=== PATIENT | female | born 1940 | race Caucasian/White ===

== ENCOUNTER 2018-02-24 21:53 | Observation (INO) ==
[2018-02-25] MEDS ORDERED: *HR* HYDROcodone/Acet 5/325 mg TABLET PO PRN (00:40)
[2018-02-25] MEDS ORDERED: 0.9 % Sodium Chloride 1,000 ML IVC SCH (02:30)
[2018-02-25] MEDS: *HR* FentaNYL (PF) 100 MCG/2 ML VIAL IVP PRN ×2 (04:27→07:36)
[2018-02-25] MEDS ORDERED: Loratadine/Pseudophed (12 HR) 1 EACH TABLET PO ONE (04:50)
--- NOTE | 2018-02-25 07:48 | Internal Med History&Physical ---
<Kevin Jaime - Last Filed: 02/25/18 17:26> Date of Encounter: 02/25/18 Time of Encounter: 07:47 Internal Medicine - H&P: HPI Chief complaint: fall Admitted From: Hospital to Hospital Transfer Plans for Post Hospital Care: Transfer Inp Rehab Fac History of present illness: Ms. Fonseca is a 77 year old female with a past medical history of hypertension, thyroid disease, multiple orthopedic fractures who presents to [facility] from [facility] after sustaining a fall. Patient states that approximately 5 AM on 02/24 she awoke to use the restroom. She reports that her power was out and she was unable to find her walker. She states that she slipped off the edge of the bed and landed on her left hip when she began to experience sudden onset pain. She has fractured that hip in the past most recently in December 2017 status post arthroplasty. She states that she did try to bear the pain using old narcotics that she was prescribed at her last hip fracture however states that the pain did increase and she presented to [facility]. At [facility], x-rays were obtained of the left hip and showed a left hip fracture located in the pubic Ramus. Orthopedics was consulted and she was transferred to [facility] for anticipation for orthopedic care. Upon examination this morning, patient states that she is still having a considerable amount of pain radiating an 8/10 in intensity and nonradiating. She does have range of motion and denies any symptoms of numbness, tingling. She states she normally moves around with the help of a walker since December as she has been falling frequently. She also stated that this was a mechanical fall and denies any symptoms of dizziness, lightheadedness, chest pain, shortness of breath. She has had cardiac workup in the past however it has been greater than 15 years since her last left heart catheterization which she reports as normal. She does not experience chest pain on exertion at home although admits that she is not very active. She is not having any shortness of breath although at this time she is having chest pain which she believes is secondary to a "popped rib " after upper respiratory symptoms and congestion. Past Med Surg Social Fam HX - Past Medical History Medical history: arthritis, GERD, hyperlipidemia, thyroid disease Psychiatric history: no psych history - Past Surgical History Surgical History: appendectomy, cholecystectomy, hysterectomy, orthopedic, other , thyroidectomy Additional surgical history: rotator cuff, elbow X3, kidney hammock, - Social History Smoking Status: Never smoker Smokeless Tobacco Status: No Alcohol use: none Drug use: none - Family History Father Name: monisha hoyos Living Status: Cause of : liver failure, alcoholizm Hx Family Neurologic Disorders: Yes (santiago) Internal Medicine - H&P: Meds Albuterol Sulfate [Proair Hfa] 1 puff IH DAILY PRN 12/17/17 [History] Aspirin Enteric Coated [Aspirin EC] 81 mg PO DAILY 12/17/17 [History] Escitalopram [Lexapro] 10 mg PO DAILY 12/17/17 [History] Levothyroxine [Synthroid] 75 mcg PO 0630 12/17/17 [History] Oxycodone HCl/Acetaminophen [Percocet 7.5-325 mg Tablet] 1 each PO Q6HR PRN [History] Gabapentin [Neurontin] 300 mg PO BID 02/24/18 [History] Esomeprazole Magnesium [Nexium] 40 mg PO DAILY 02/25/18 [History] Lisinopril [Zestril] 20 mg PO DAILY 02/25/18 [History] 3 Allergy/AdvReac Type Severity Reaction Status Date / Time Penicillins [PCN] AdvReac Rash Verified 12/17/17 01:51 Sulfa (Sulfonamide AdvReac Rash Verified 12/17/17 01:51 Antibiotics) All Systems PM: A 10-system review of systems was performed and is negative for pertinent findings except as documented above in the HPI. Review of systems: - Constitutional: Denies fevers, chills, weight loss, generalized fatigue - EENT: Admits to nasal congestion, sneezing Denies vision changes/blurriness, rhinorrhea, sore throat, odynaphagia - CVS: Denies chest pain, palpitations, DICKEY, orthopnea, edema, PND - Pulm: Denies SOB, cough, sputum, hematemesis, wheezing - GI: Denies abdominal pain, anorexia, nausea, vomiting, diarrhea, constipation , melena - MSK: Admits to left hip pain, limited ROM secondary to pain. - Skin: Denies rashes, ulcers, color changes - Neuro: Denies DEAL, paresthesias, focal deficits, ataxia, - Constitutional Vitals: Temp Pulse Resp BP Pulse Ox 97.4 F L 70 16 156/81 98 02/25/18 07:23 02/25/18 07:23 02/25/18 07:23 02/25/18 07:23 02/25/18 07:23 Exam: Gen.: Vitals noted. No acute distress. AAOx3 HEENT: PERRL/EOMI, oropharynx clear, Normocephalic, atraumatic, MMM Cardiac: RRR, no murmur, +S1/S2, reproducible chest pain on palpation Pulmonary: CTA bilaterally, no wheezes, rales or rhonchi, equal chest expansion Abdomen: soft, nontender, BS noted, no guarding, no rebound. MSK: Pain in left hip, distal pulses intact, sensation grossly within normal limits, range of motion limited by pain Extremities: no BLE edema, nontender calf, no cyanosis or clubbing Neuro: A&Ox3, no focal deficits Psych: Appropriate mood and behavior - Assessment and plan (1) Hip fracture Current Visit: Yes Status: Acute Assessment and plan: - Secondary to mechanical fall, fracture of the left pubic ramus - Ortho has been consulted, appreciate recommendations - Pain control with [place], [place] Oxycodone - Patient has uncertain cardiac risk however given high morbidity and mortality of hip fracture, benefits likely outweigh the risks of proceeding with surgical repair. - Will likely benefit from PT/OT after surgery as well as rehab facility. Plan - Await recommendations from orthopedics - Symptomatic control Qualifiers: Encounter type: initial encounter Fracture type: closed Laterality: left Qualified Code(s): S72.002A - Fracture of unspecified part of neck of left femur, initial encounter for closed fracture (2) Fall Current Visit: Yes Status: Acute Assessment and plan: - Patient states that is mechanical in nature - Most recent cardiac workup greater than 15 years ago however patient reports normal - No reports of chest pain but admits to not exerting herself frequently - No EKG on admission paperwork, will obtain and review. No signs of ischemia. Qualifiers: Encounter type: initial encounter Qualified Code(s): W19.XXXA - Unspecified fall, initial encounter (3) Thyroid disease Current Visit: Yes Status: Chronic Assessment and plan: Continue home Synthroid (4) Weakness Current Visit: Yes Status: Chronic Assessment and plan: - May benefit from rehab and PT/OT on discharge (5) Hyperlipidemia Current Visit: Yes Status: Chronic Assessment and plan: - Not on home statin Qualifiers: Hyperlipidemia type: unspecified Qualified Code(s): E78.5 - Hyperlipidemia , unspecified (6) DVT prophylaxis Current Visit: Yes Status: Acute Assessment and plan: - Immobile from hip fracture - Will not place on AC at this time until orthopedic recommendations are made (7) Hypertension Current Visit: Yes Status: Chronic Assessment and plan: - Continue home medications - Mildly elevated on presentation likely secondary to pain - Continue to monitor Qualifiers: Hypertension type: essential hypertension Qualified Code(s): I10 - Essential (primary) hypertension - Time Spent With Patient Total time spent is greater than 50% in coordination of care (as documented) at patient's floor/unit and/or counseling patient: <Helder Meek - Last Filed: 02/25/18 17:59> Date of Encounter: 02/25/18 Internal Medicine - H&P: HPI History of present illness: Ms. Fonseca is a 77 year old female All Systems PM: A 10-system review of systems was performed and is negative for pertinent findings except as documented above in the HPI. - Constitutional Vitals: Temp Pulse Resp BP Pulse Ox 98.6 F 87 17 155/82 97 02/25/18 15:16 02/25/18 15:16 02/25/18 15:16 02/25/18 15:16 02/25/18 15:16 - Assessment and plan (1) Fall Current Visit: Yes Status: Acute Qualifiers: Encounter type: initial encounter Qualified Code(s): W19.XXXA - Unspecified fall, initial encounter (2) Weakness Current Visit: Yes Status: Chronic (3) Hyperlipidemia Current Visit: Yes Status: Chronic Qualifiers: Hyperlipidemia type: unspecified Qualified Code(s): E78.5 - Hyperlipidemia , unspecified (4) DVT prophylaxis Current Visit: Yes Status: Acute (5) Hip fracture Current Visit: Yes Status: Acute Qualifiers: Encounter type: initial encounter Fracture type: closed Laterality: left Qualified Code(s): S72.002A - Fracture of unspecified part of neck of left femur, initial encounter for closed fracture (6) Thyroid disease Current Visit: Yes Status: Chronic (7) Hypertension Current Visit: Yes Status: Chronic Qualifiers: Hypertension type: essential hypertension Qualified Code(s): I10 - Essential (primary) hypertension - Time Spent With Patient Total time spent is greater than 50% in coordination of care (as documented) at patient's floor/unit and/or counseling patient: - Attending Attestation I have seen and examined this pt independently. I have discussed with resident physician Dr. Jaime regarding the management plan. Agree with the documentation.
[2018-02-25] MEDS ORDERED: Naloxone 0.4 MG/ML INJ IVP PRN (08:37)
[2018-02-25] MEDS: Lisinopril 20 MG TABLET PO SCH (11:44)
[2018-02-25] MEDS: Gabapentin 300 MG CAPSULE PO SCH ×2 (11:44→21:35)
[2018-02-25] MEDS: OXYCODONE Oral CONC 10 MG/0.5 ML ORAL.SYG SL PRN ×3 (11:49→21:35)
--- NOTE | 2018-02-25 19:40 | Orthopedic Consult Note ---
Date of Encounter: 02/25/18 Time of Encounter: 19:34 History of Present Illness Chief complaint: Left hip pain HPI: Ms. Fonseca is a 77 year old female sustained an injury to her left hip when she states that she slipped off the edge of her bed and landed on her left hip. This is same hip that she sustained a fracture of about 9 or 10 weeks ago and required fixation. 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 Unfortunately, the patient did not realize that the luna off and it was dark. Upon returning to bed she slid off the edge and landed on the hip. She had acute onset of pain and was unable to ambulate. She waited several hours and then ultimately presented to [facility] where x-rays taken revealed evidence of a left pelvic fracture. She was transferred to [facility] for further evaluation and management. I reviewed the patient's completed history and physical form on the medical record as well as reviewed her medical chart. Pertinent orthopedic examination reveals limited ability to examine the left hip due to pain elicited with attempts at range of motion. No evidence of significant shortening nor rotatory disturbances. Distal neurovascular exam is intact. I reviewed x-rays from 12/30/17, these reveal a trochanteric nail in the left hip with appropriate positioning and no complicating features. I reviewed the x-rays taken at [facility], dated 02/24/2018, these reveal evidence of a superior pubic ramus fracture close to the level of the acetabulum. There are some anomalies at the symphysis pubis with a suspected inferior pubic ramus fracture at this level. The previously placed trochanteric nail was fracture to be stable and in essence well-healed. Impression: Left inferior superior pubic rami fractures, nondisplaced Recommendation: These do not require surgical intervention. I discussed with the patient and family that these are treated conservatively with use of a walker and beginning weightbearing as tolerated utilizing standard walker. We also discussed pain management, the patient is on chronic pain medications on a discussed with her that we will have to proceed with caution in regards to any escalation of her medications. I also discussed that we are talking pain management, not pain free. Also need to be concerned with constipation or obstipation in light of the pelvic type pain as well as her relative immobility and the use of narcotic medications. Suspect the patient will need short-term rehabilitation stay, she is familiar with this due to recent admission after her hip fracture. Thank you very much for allowing me to seen care for Mrs. Kowalski. Sincerely, Phoenix Abreu,DO Past Med Surg Social Fam HX - Past Medical History Medical history: arthritis, GERD, hyperlipidemia, thyroid disease Psychiatric history: no psych history - Past Surgical History Surgical History: appendectomy, cholecystectomy, hysterectomy, orthopedic, other , thyroidectomy Additional surgical history: rotator cuff, elbow X3, kidney hammock, - Social History Smoking Status: Never smoker Smokeless Tobacco Status: No Alcohol use: none Drug use: none - Family History Father Name: monisha hoyos Living Status: Cause of : liver failure, alcoholizm Hx Family Neurologic Disorders: Yes (santiago) Medications and Allergies Albuterol Sulfate [Proair Hfa] 1 puff IH DAILY PRN 12/17/17 [History] Aspirin Enteric Coated [Aspirin EC] 81 mg PO DAILY 12/17/17 [History] Escitalopram [Lexapro] 10 mg PO DAILY 12/17/17 [History] Levothyroxine [Synthroid] 75 mcg PO 0630 12/17/17 [History] Oxycodone HCl/Acetaminophen [Percocet 7.5-325 mg Tablet] 1 each PO Q6HR PRN [History] Gabapentin [Neurontin] 300 mg PO BID 02/24/18 [History] Esomeprazole Magnesium [Nexium] 40 mg PO DAILY 02/25/18 [History] Lisinopril [Zestril] 20 mg PO DAILY 02/25/18 [History] 3 Allergy/AdvReac Type Severity Reaction Status Date / Time Penicillins [PCN] AdvReac Rash Verified 12/17/17 01:51 Sulfa (Sulfonamide AdvReac Rash Verified 12/17/17 01:51 Antibiotics) All Systems Reviewed: The remainder of the systems were reviewed and are negative Physical Exam - Constitutional Vitals: Temp Pulse Resp BP Pulse Ox 98.6 F 87 17 155/82 97 02/25/18 15:16 02/25/18 15:16 02/25/18 15:16 02/25/18 15:16 02/25/18 15:16 Results - Labs Labs: All other labs normal. - Diagnostic results Hip x-ray: image reviewed Consult Discharge Plan - Plan Referrals: Michele Maza MD [Primary Care Provider] -
[2018-02-26 02:19] LABS: Hematocrit 37.4 % (35.3-44.9); Hemoglobin 12.3 g/dL (11.5-15.4); Mean Corpuscular HGB Conc 32.9 g/dL (31.6-35.5); Mean Corpuscular Hemoglobin 31.4 pg (28.0-33.3); Mean Corpuscular Volume 95.4 fL (83.0-100.0); Mean Platelet Volume 9.8 fL (9.4-12.4); Platelet Count 228 K/mcL (140-400); Red Blood Count 3.92 M/mcL (3.82-4.97); Red Cell Distribution Width 14.2 % (11.5-14.5)
[2018-02-26 02:39] LABS: BUN/Creatinine Ratio 15 (6-26); Blood Urea Nitrogen 13 mg/dL (8-23); Calcium 8.9 mg/dL (8.6-10.3); Carbon Dioxide 27 mEq/L (23-29); Chloride 99 mEq/L (98-107); Glucose 92 mg/dL (70-105); Osmolality,Calculated 276 (280-300); Potassium 3.7 mEq/L (3.5-5.1); Sodium 133 mEq/L (136-145); eGFR For Non-African Americans > 60 (> 60)
[2018-02-26] MEDS: OXYCODONE Oral CONC 10 MG/0.5 ML ORAL.SYG SL PRN ×2 (05:36→12:24)
[2018-02-26] MEDS ORDERED: Acetaminophen 325 MG TABLET PO PRN (07:38)
[2018-02-26] MEDS: *HR* Enoxaparin 30 MG/0.3 ML SYRINGE SQ SCH ×2 (09:30→20:47)
[2018-02-26] MEDS: Gabapentin 300 MG CAPSULE PO SCH ×2 (09:30→20:47)
[2018-02-26] MEDS: Lisinopril 20 MG TABLET PO SCH (09:30)
[2018-02-26] MEDS ORDERED: Lactulose Oral Soln 20 GM/30 ML UDC PO ONE (11:47)
--- NOTE | 2018-02-26 16:58 | Internal Med Progress Note ---
Hospitalist Progress Note - Encounter Date of Encounter: 02/26/18 Time of Encounter: 09:00 - Subjective Interval History: Pt still c/o pevis/hip pain. Need pain meds. On PT/OT. No fever, nausea/SOB. - Exam Vitals: Temp Pulse Resp BP Pulse Ox 98.2 F 76 18 138/83 97 02/26/18 10:02 02/26/18 10:02 02/26/18 10:02 02/26/18 10:02 02/26/18 10:02 Exam: Gen.: Vitals noted. No acute distress. AAOx3 HEENT: PERRL/EOMI, oropharynx clear, Normocephalic, atraumatic, MMM Cardiac: RRR, no murmur, +S1/S2, reproducible chest pain on palpation Pulmonary: CTA bilaterally, no wheezes, rales or rhonchi, equal chest expansion Abdomen: soft, nontender, BS noted, no guarding, no rebound. MSK: Pain in left hip, distal pulses intact, sensation grossly within normal limits, range of motion limited by pain Extremities: no BLE edema, nontender calf, no cyanosis or clubbing, limited ROM of b/l legs due to pain. Neuro: A&Ox3, no focal deficits Psych: Appropriate mood and behavior - Assessment and Plan (1) Fall Current Visit: Yes Status: Acute Assessment and Plan: - Patient states that is mechanical in nature - Most recent cardiac workup greater than 15 years ago however patient reports normal - No reports of chest pain but admits to not exerting herself frequently - No EKG on admission paperwork, will obtain and review. No signs of ischemia. - PT/OT evaluation (2) Weakness Current Visit: Yes Status: Chronic Assessment and Plan: - May benefit from rehab and PT/OT on discharge (3) Hyperlipidemia Current Visit: Yes Status: Chronic Assessment and Plan: - Not on home statin (4) DVT prophylaxis Current Visit: Yes Status: Acute Assessment and Plan: Lovenox sc 30mg bid (5) Hip fracture Current Visit: Yes Status: Acute Assessment and Plan: - Secondary to mechanical fall, fracture of the left pubic ramus - Ortho has been consulted, appreciate recommendations - no surgical intervention - Cont PT/OT, pain management, and DVT prophylaxis (6) Thyroid disease Current Visit: Yes Status: Chronic Assessment and Plan: Continue home Synthroid (7) Hypertension Current Visit: Yes Status: Chronic Assessment and Plan: - Continue home medications - Mildly elevated on presentation likely secondary to pain - Continue to monitor DVT Prophylaxis: Lovenox SC - Time Spent with Patient Total time spent is greater than 50% in coordination of care (as documented) at patient's floor/unit and/or counseling patient: 30 min 25 - 35 minutes Plan of Care Discussed with: patient Internal Medicine: Result - Labs CBC & Chem 7: 02/26/18 01:35 02/26/18 01:35 Labs: Short CBC 02/26/18 Range/Units 01:35 WBC 9.7 (4.3-11.1) K/mcL Hgb 12.3 (11.5-15.4) g/dL Hct 37.4 (35.3-44.9) % Plt Count 228 (140-400) K/mcL BMP 02/26/18 01:35 Sodium 133 L Potassium 3.7 Chloride 99 Carbon Dioxide 27 BUN 13 Creatinine 0.84 Glucose 92 Calcium 8.9 Consult Discharge Plan - Plan Referrals: Michele Maza MD [Primary Care Provider] - (1) Fall Qualifiers: Encounter type: initial encounter Qualified Code(s): W19.XXXA - Unspecified fall, initial encounter (3) Hyperlipidemia Qualifiers: Hyperlipidemia type: unspecified Qualified Code(s): E78.5 - Hyperlipidemia, unspecified (5) Hip fracture Qualifiers: Encounter type: initial encounter Fracture type: closed Laterality: left Qualified Code(s): S72.002A - Fracture of unspecified part of neck of left femur , initial encounter for closed fracture (7) Hypertension Qualifiers: Hypertension type: essential hypertension Qualified Code(s): I10 - Essential (primary) hypertension
[2018-02-26] MEDS: *HR* HYDROcodone/Acet 7.5/325 mg TABLET PO PRN (20:47)
[2018-02-26] MEDS ORDERED: tiZANidine 4 MG TABLET PO PRN (22:30)
[2018-02-27] MEDS: *HR* Enoxaparin 30 MG/0.3 ML SYRINGE SQ SCH (05:32)
[2018-02-27] MEDS: OXYCODONE Oral CONC 10 MG/0.5 ML ORAL.SYG SL PRN ×2 (05:33→12:38)
--- NOTE | 2018-02-27 08:56 | Internal Med Progress Note ---
<Negro Quispe - Last Filed: 02/27/18 12:53> Hospitalist Progress Note - Encounter Date of Encounter: 02/27/18 Time of Encounter: 08:52 - Subjective Interval History: Pt seen and examined this morning. Resting comfortably, NAD. Pt happy with progress being made. Motivated to continue moving, and looking forward to SNF to receive further tx. Pain 5/10 this morning. Good diet. Last BM Saturday. ROS: denies headaches, changes in vision or hearing, sob, abdominal pain, n/v/d; admits to continued upper left sided chest pain, left thigh and pelvic pain - Exam Vitals: Temp Pulse Resp BP Pulse Ox 98.3 F 64 14 115/63 95 02/27/18 06:43 02/27/18 06:43 02/27/18 06:43 02/27/18 06:43 02/27/18 06:43 Exam: Gen.: No acute distress. AAOx3 HEENT: PERRL/EOMI, Normocephalic, atraumatic, Cardiac: RRR, no murmur, +S1/S2, reproducible chest pain on palpation Pulmonary: CTA bilaterally, no wheezes, rales or rhonchi Abdomen: soft, nontender, no guarding, no rebound. MSK: Pain in left hip, distal pulses intact, sensation grossly within normal limits, range of motion limited by pain Extremities: no BLE edema, nontender calf, no cyanosis or clubbing, limited ROM of b/l legs due to pain. Neuro: A&Ox3, no focal deficits Psych: Appropriate mood and behavior - Assessment and Plan (1) Fall Current Visit: Yes Status: Acute Assessment and Plan: fall mechanical in nature no reports of syncopal or presyncopal episode related to fall cardiac workup 15 years ago reported as normal (2) Hip fracture Current Visit: Yes Status: Acute Assessment and Plan: Left inferior superior pubic rami fractures, nondisplaced Othro consulted rec: -no need for surgical intervention at this time -treated conservatively with use of a walker and beginning weightbearing as tolerated -Short rehab facility stay -pain control -PT/OT (3) Thyroid disease Current Visit: Yes Status: Chronic Assessment and Plan: continue home synthroid (4) DVT prophylaxis Current Visit: Yes Status: Acute Assessment and Plan: Lovenox sc 30mg bid (5) Hyperlipidemia Current Visit: Yes Status: Chronic Assessment and Plan: not on home statin (6) Hypertension Current Visit: Yes Status: Chronic Assessment and Plan: continue home medication controlled 115/63 this morning - Time Spent with Patient Total time spent is greater than 50% in coordination of care (as documented) at patient's floor/unit and/or counseling patient: Internal Medicine: Result - Labs CBC & Chem 7: 02/26/18 01:35 02/26/18 01:35 - VTE Documentation of Mechanical Device: Intermittent pneumatic compression device Consult Discharge Plan - Plan Referrals: Michele Maza MD [Primary Care Provider] - Prescriptions: Oxycodone HCl/Acetaminophen [Percocet 7.5-325 mg Tablet] 1 each PO Q6HR PRN 3 Days #12 tablet PRN Reason: Pain Docusate [Colace] 200 mg PO DAILY #5 capsule <Helder Meek - Last Filed: 02/27/18 13:17> Hospitalist Progress Note - Encounter Date of Encounter: 02/27/18 - Exam Vitals: Temp Pulse Resp BP Pulse Ox 98.1 F 75 14 113/65 96 02/27/18 11:15 02/27/18 11:15 02/27/18 11:15 02/27/18 11:15 02/27/18 11:15 - Assessment and Plan (1) Fall Current Visit: Yes Status: Acute (2) Weakness Current Visit: Yes Status: Chronic (3) Hyperlipidemia Current Visit: Yes Status: Chronic (4) DVT prophylaxis Current Visit: Yes Status: Acute (5) Hip fracture Current Visit: Yes Status: Acute (6) Thyroid disease Current Visit: Yes Status: Chronic (7) Hypertension Current Visit: Yes Status: Chronic - Time Spent with Patient Total time spent is greater than 50% in coordination of care (as documented) at patient's floor/unit and/or counseling patient: Internal Medicine: Result - Labs CBC & Chem 7: 02/26/18 01:35 02/26/18 01:35 - Attending Attestation I have seen and examined this pt independently. I have discussed with resident physician Dr Jaime and medical student regarding the management plan. Agree with the documentation. <MaheshsarahNegro - Last Filed: 02/27/18 12:53> (1) Fall Qualifiers: Encounter type: initial encounter Qualified Code(s): W19.XXXA - Unspecified fall, initial encounter (2) Hip fracture Qualifiers: Encounter type: initial encounter Fracture type: closed Laterality: left Qualified Code(s): S72.002A - Fracture of unspecified part of neck of left femur , initial encounter for closed fracture (5) Hyperlipidemia Qualifiers: Hyperlipidemia type: unspecified Qualified Code(s): E78.5 - Hyperlipidemia, unspecified (6) Hypertension Qualifiers: Hypertension type: essential hypertension Qualified Code(s): I10 - Essential (primary) hypertension <Helder Meek - Last Filed: 02/27/18 13:17> (1) Fall Qualifiers: Qualified Code(s): W19.XXXA - Unspecified fall, initial encounter (3) Hyperlipidemia Qualifiers: Qualified Code(s): E78.5 - Hyperlipidemia, unspecified (5) Hip fracture Qualifiers: Qualified Code(s): S72.002A - Fracture of unspecified part of neck of left femur, initial encounter for closed fracture (7) Hypertension Qualifiers: Qualified Code(s): I10 - Essential (primary) hypertension
[2018-02-27] MEDS: *HR* HYDROcodone/Acet 7.5/325 mg TABLET PO PRN (09:03)
[2018-02-27] MEDS: Gabapentin 300 MG CAPSULE PO SCH (09:03)
[2018-02-27] MEDS: Lisinopril 20 MG TABLET PO SCH (09:04)
[2018-02-27 12:53] VITALS: BP 113/65
--- NOTE | 2018-02-27 13:15 | Discharge Summary ---
<AnthonyKylah Mix - Last Filed: 02/27/18 13:43> - NOTES TO OUTPATIENT PROVIDER Notes to Outpatient Provider: Patient had a fracture of her pelvis. She was evaluated by orthopedics and is being managed conservatively. Patient is being discharged to rehab facility. Please follow up within 5-7 days. Thank you. Date of Encounter: 02/27/18 Time of Encounter: 10:01 - Discharge Diagnosis (1) Fall Priority: Primary Status: Acute Qualifiers: Encounter type: initial encounter Qualified Code(s): W19.XXXA - Unspecified fall, initial encounter (2) Hip fracture Priority: Primary Status: Acute Qualifiers: Encounter type: initial encounter Fracture type: closed Laterality: left Qualified Code(s): S72.002A - Fracture of unspecified part of neck of left femur, initial encounter for closed fracture (3) Hypertension Priority: Secondary Status: Chronic Qualifiers: Hypertension type: essential hypertension Qualified Code(s): I10 - Essential (primary) hypertension (4) Thyroid disease Priority: Secondary Status: Chronic (5) Weakness Priority: Secondary Status: Chronic (6) Anemia Priority: Secondary Status: Chronic Qualifiers: Anemia type: unspecified type Qualified Code(s): D64.9 - Anemia, unspecified Hospital course: Ms. Fonseca is a 77 year old female with a history of hypertension, hyperlipidemia , anemia, and thyroid disease who presented to [facility] after a mechanical fall resulting in significant pain. Xrays at [facility] showed a left hip fracture in the pubic ramus. She was then transferred to [place] for orthopedic evaluation. She had previously fractured this hip in December 2017 status post arthroplasty. Upon evaluation, she was said to have non-displaced left inferior superior pubic rami fractures, which do not require surgical intervention. Ms. Fonseca is stable and being discharged to [facility] bed for PT/OT. Discharge discussed with: patient Time spent discussing smoking cessation with patient: 3 to 10 minutes - Time Spent with Patient Total time spent providing and/or coordinating discharge services: - Discharge Medications Prescriptions: Oxycodone HCl/Acetaminophen [Percocet 7.5-325 mg Tablet] 1 each PO Q6HR PRN 3 Days #12 tablet PRN Reason: Pain Docusate [Colace] 200 mg PO DAILY #5 capsule Home Medications: Albuterol Sulfate [Proair Hfa] 1 puff IH DAILY PRN 12/17/17 [History] Aspirin Enteric Coated [Aspirin EC] 81 mg PO DAILY 12/17/17 [History] Escitalopram [Lexapro] 10 mg PO DAILY 12/17/17 [History] Levothyroxine [Synthroid] 75 mcg PO 0630 12/17/17 [History] Gabapentin [Neurontin] 300 mg PO BID 02/24/18 [History] Esomeprazole Magnesium [Nexium] 40 mg PO DAILY 02/25/18 [History] Lisinopril [Zestril] 20 mg PO DAILY 02/25/18 [History] Docusate [Colace] 200 mg PO DAILY #5 capsule 02/27/18 [Rx] Oxycodone HCl/Acetaminophen [Percocet 7.5-325 mg Tablet] 1 each PO Q6HR PRN 3 Days #12 tablet 02/27/18 [Rx] Allergies/Adverse Reactions: 3 Allergy/AdvReac Type Severity Reaction Status Date / Time Penicillins [PCN] AdvReac Rash Verified 12/17/17 01:51 Sulfa (Sulfonamide AdvReac Rash Verified 12/17/17 01:51 Antibiotics) Date of admission: 02/24/18 23:33 Primary care physician: Michele Maza MD Consults: 02/25/18 07:20 Consult to Orthopedic Surgery [CONS] Routine Consulting Provider: Orthopedic and Sports Medicine Reason for Consult: Fracture, called by [facility] ER already Call Completed: Yes 02/25/18 19:44 Consult to Occupational Therapy [CONS] Routine Comment: Evaluate, develop and implement POC Reason for Consult: ADL Does patient have active BEDREST order?: No Is patient medically & hemodynamically stable?: Yes Consult to Physical Therapy [CONS] Routine Comment: Evaluate, develop and implement POC Reason for Consult: Ambulation Does patient have active BEDREST order?: No Is patient medically & hemodynamically stable?: Yes Consult to J[employer] ([facility]) [CONS] Routine Reason For Exam: Reason for SW Consult: DC - Constitutional Vitals: Temp Pulse Resp BP Pulse Ox 98.1 F 75 14 113/65 96 02/27/18 11:15 02/27/18 11:15 02/27/18 11:15 02/27/18 11:15 02/27/18 11:15 Exam: Gen.: No acute distress. AAOx3 HEENT: PERRL/EOMI, Normocephalic, atraumatic, Cardiac: RRR, no murmur, +S1/S2 Pulmonary: CTA bilaterally, no wheezes Abdomen: soft, nontender MSK: Pain in left hip, distal pulses intact, sensation grossly within normal limits, range of motion limited by pain Extremities: no BLE edema, no cyanosis or clubbing, limited ROM of b/l legs due to pain. Psych: Appropriate mood and behavior - Patient Status Disposition: Transfer Hospital Swing Bed Overall status at discharge: patient is progressing back to baseline - Discharge Instructions Follow Up With: Phoenix Abreu DO [Non-Partnered Physician] - 03/05/18 1:30 pm Michele Maza MD [Primary Care Provider] - Additional Instructions: Follow up PCP within 5-7 days. Take all medications as prescribed. Return to the ED if worsening of symptoms. - Diet and Activity Activity: as per physical therapy Diet: low salt diet - VTE Documentation of Mechanical Device: Intermittent pneumatic compression device <FantasmaHelder - Last Filed: 02/27/18 15:26> Date of Encounter: 02/27/18 - Discharge Diagnosis (1) Fall Status: Acute Qualifiers: Encounter type: initial encounter Qualified Code(s): W19.XXXA - Unspecified fall, initial encounter (2) Weakness Status: Chronic (3) Hyperlipidemia Status: Chronic Qualifiers: Hyperlipidemia type: unspecified Qualified Code(s): E78.5 - Hyperlipidemia , unspecified (4) DVT prophylaxis Status: Acute (5) Hip fracture Status: Acute Qualifiers: Encounter type: initial encounter Fracture type: closed Laterality: left Qualified Code(s): S72.002A - Fracture of unspecified part of neck of left femur, initial encounter for closed fracture (6) Thyroid disease Status: Chronic (7) Hypertension Status: Chronic Qualifiers: Hypertension type: essential hypertension Qualified Code(s): I10 - Essential (primary) hypertension Hospital course: Ms. Fonseca is a 77 year old female - Time Spent with Patient Total time spent providing and/or coordinating discharge services: Date of admission: 02/24/18 23:33 Primary care physician: Mihcele Maza MD Consults: 02/25/18 07:20 Consult to Orthopedic Surgery [CONS] Routine Consulting Provider: Orthopedic and Sports Medicine Reason for Consult: Fracture, called by [facility] ER already Call Completed: Yes 02/25/18 19:44 Consult to Occupational Therapy [CONS] Routine Comment: Evaluate, develop and implement POC Reason for Consult: ADL Does patient have active BEDREST order?: No Is patient medically & hemodynamically stable?: Yes Consult to Physical Therapy [CONS] Routine Comment: Evaluate, develop and implement POC Reason for Consult: Ambulation Does patient have active BEDREST order?: No Is patient medically & hemodynamically stable?: Yes Consult to Jitney Driver ([facility]) [CONS] Routine Reason For Exam: Reason for SW Consult: DC Discharging clinician: Helder Meek Anticipated date of discharge: 02/27/18 - Constitutional Vitals: Temp Pulse Resp BP Pulse Ox 98.1 F 75 14 113/65 96 02/27/18 11:15 02/27/18 11:15 02/27/18 11:15 02/27/18 11:15 02/27/18 11:15 - Patient Status Overall status at discharge: patient is progressing back to baseline - Diet and Activity Activity: as per physical therapy Diet: low salt diet - Attending Attestation I have seen and examined this pt independently. I have discussed with resident physician Dr Cruz regarding the management plan. Agree with the documentation.
--- NOTE | 2018-02-27 13:38 | Physician Discharge Referral ---
<yKlah Cruz - Last Filed: 02/27/18 13:36> ExtendedCare Referral Info Transfer To: [facility] Provider in Charge after Transfer: PCP - Diagnosis (2) Hip fracture Priority: Primary Status: Acute (5) Weakness Priority: Secondary Status: Chronic (6) Anemia Priority: Secondary Status: Chronic (7) Hyperlipidemia Priority: Secondary Status: Chronic Prognosis: Fair Aware of Diagnosis: Patient Aware of Prognosis: Patient - Transfer Medications Prescriptions: Oxycodone HCl/Acetaminophen [Percocet 7.5-325 mg Tablet] 1 each PO Q6HR PRN 3 Days #12 tablet PRN Reason: Pain Docusate [Colace] 200 mg PO DAILY #5 capsule Home Medications: Albuterol Sulfate [Proair Hfa] 1 puff IH DAILY PRN 12/17/17 [History] Aspirin Enteric Coated [Aspirin EC] 81 mg PO DAILY 12/17/17 [History] Escitalopram [Lexapro] 10 mg PO DAILY 12/17/17 [History] Levothyroxine [Synthroid] 75 mcg PO 0630 12/17/17 [History] Gabapentin [Neurontin] 300 mg PO BID 02/24/18 [History] Esomeprazole Magnesium [Nexium] 40 mg PO DAILY 02/25/18 [History] Lisinopril [Zestril] 20 mg PO DAILY 02/25/18 [History] Docusate [Colace] 200 mg PO DAILY #5 capsule 02/27/18 [Rx] Oxycodone HCl/Acetaminophen [Percocet 7.5-325 mg Tablet] 1 each PO Q6HR PRN 3 Days #12 tablet 02/27/18 [Rx] Allergies/Adverse Reactions: 3 Allergy/AdvReac Type Severity Reaction Status Date / Time Penicillins [PCN] AdvReac Rash Verified 12/17/17 01:51 Sulfa (Sulfonamide AdvReac Rash Verified 12/17/17 01:51 Antibiotics) - Respiratory Orders Smoking Cessation: Smoking cessation has been advised. For more information, call the [place] Tobacco Quit Line at 4-680-TGKF-NOW. - Mobility Orders Ambulate - Rehabiliation Orders Rehab Potential: Fair Rehab Orders: Evaluation for Physical Therapy, Evaluation for Occupational Therapy - Diet Orders Cardiac CERTIFICATION: I certify that the transfer of the above named patient to an Extended Care Facility is necessary for the continuing treatment of the diagnosis listed. The above information is true and accurate reflection of patient's current condition. Confidential - Redisclosure prohibited without a patient's written consent. <Helder Meek - Last Filed: 02/27/18 15:17> ExtendedCare Referral Info Provider in Charge after Transfer: Other - Diagnosis (1) Fall Status: Acute (2) Weakness Status: Chronic (3) Hyperlipidemia Status: Chronic (4) DVT prophylaxis Status: Acute (5) Hip fracture Status: Acute (6) Thyroid disease Status: Chronic (7) Hypertension Status: Chronic - Respiratory Orders Smoking Cessation: Smoking cessation has been advised. For more information, call the [place] Tobacco Quit Line at 2-378-FFETNOW. CERTIFICATION: I certify that the transfer of the above named patient to an Extended Care Facility is necessary for the continuing treatment of the diagnosis listed. The above information is true and accurate reflection of patient's current condition. Confidential - Redisclosure prohibited without a patient's written consent.
--- NOTE | 2018-03-02 08:39 | Electrocardiograph Report ---
[place] [id number] Test Date: 2018-02-25 Pat Name: Montserrat Fonseca Department: 115 Room: [facility] Gender: F Machine Set Up Operator [employer]: ANN : 1940 Requested By: Kevin Jaime Order Number: [id number] Reading MD: Saud Farfan Measurements Intervals [place] Rate: 85 P: 49 CO: 195 QRS: 45 QRSD: 83 T: 49 QT: 387 QTc: 429 Interpretive Statements SINUS RHYTHM NONSPECIFIC T-WAVE ABNORMALITY Electronically Signed On 03-02-2018 8:37:08 EDT by Saud Farfan
== END 2018-02-27 15:01 | disposition other institution (70) ==
LOC: 3NENU → SUATTDRO 23:33
PROVIDERS: ADMIT Internal Medicine; ATTEND Internal Medicine